=== PATIENT | female | born 1970 | race Caucasian/White ===

== ENCOUNTER → 2019-06-04 14:21 | Outpatient (CLI) | payer OTHER, SELFPAY ==
[2019-06-04 15:58] LABS: Add Manual Diff / Slide Review NO; Basophils Absolute Auto 0 /uL (0-100); Basophils Percent Auto 0.4 % (0-2); Eosinophils Absolute Auto 100 /uL (0-450); Eosinophils Percent Auto 1.4 % (2-4); Hematocrit 44.1 % (36-46); Lymphocytes Absolute Auto 1400 /uL (1100-4500); Lymphocytes Percent Auto 15.8 % (25-40); Mean Corpuscular HGB Conc 34.1 % (30-36); Mean Corpuscular Hemoglobin 33.2 PG (26-34); Mean Corpuscular Volume 97.4 fL (80-100); Monocytes Absolute Auto 700 /uL (0-900); Monocytes Percent Auto 7.6 % (3-14); Neutrophils Absolute Auto 6700 /uL (1500-7000); Neutrophils Percent Auto 74.8 % (50-75); Platelet Count 261 X10^3/uL (150-400); Red Blood Cell Count 4.53 X10^6/uL (4.0-5.2); Red Cell Distribution Width 13.2 % (11.6-14.8)
[2019-06-04 16:08] LABS: BUN Creatinine Ratio 21.4 (6-22); Blood Urea Nitrogen 15 mg/dL (7-17); Calcium 9.5 mg/dL (8.4-10.2); Carbon Dioxide 30 mmol/L (22-32); Chloride 101 mmol/L (98-107); Estimated Glomerular Filt Rate > 60.0 mL/min (>60); Glucose 103 mg/dL (70-100); HEMOLYSIS < 15 (0-50); Potassium 3.9 mmol/L (3.4-5.1); Sodium 140 mmol/L (137-145)
== END ==
PROVIDERS: PCP Family Medicine; Visit Provider Podiatrist
DX: Z01.818 Encounter for other preprocedural examination (principal); Z01.812 Encounter for preprocedural laboratory examination
CPT/HCPCS: 36415; 80048; 85025; 93005

== ENCOUNTER → 2019-12-29 12:06 | Outpatient (CLI) | payer OTHER, SELFPAY ==
[2019-12-29 12:45] LABS: Add Manual Diff / Slide Review NO; Basophils Absolute Auto 0 /uL (0-100); Basophils Percent Auto 0.3 % (0-2); Eosinophils Absolute Auto 0 /uL (0-450); Eosinophils Percent Auto 0.7 % (2-4); Hematocrit 46.1 % (36-46); Hemoglobin 15.8 g/dL (12.0-16.0); Lymphocytes Absolute Auto 1000 /uL (1100-4500); Lymphocytes Percent Auto 13.9 % (25-40); Mean Corpuscular HGB Conc 34.3 % (30-36); Mean Corpuscular Hemoglobin 34.5 PG (26-34); Mean Corpuscular Volume 100.6 fL (80-100); Monocytes Absolute Auto 400 /uL (0-900); Monocytes Percent Auto 6.2 % (3-14); Neutrophils Absolute Auto 5700 /uL (1500-7000); Neutrophils Percent Auto 78.9 % (50-75); Platelet Count 307 X10^3/uL (150-400); Red Blood Cell Count 4.58 X10^6/uL (4.0-5.2); Red Cell Distribution Width 15.1 % (11.6-14.8); White Blood Cell Count 7.2 X10^3/uL (4.5-11.0)
[2019-12-29 13:11] LABS: Alanine Aminotransferase 16 IU/L (<35); Albumin 4.9 g/dL (3.5-5.0); Albumin Globulin Ratio 1.6 (1.0-2.8); Alkaline Phosphatase 85 U/L (38-126); Aspartate Aminotransferase 26 IU/L (14-36); BUN Creatinine Ratio 25.7 (6-22); Bilirubin Total 1.6 mg/dL (0.2-1.3); Blood Urea Nitrogen 18 mg/dL (7-17); Calcium 9.7 mg/dL (8.4-10.2); Carbon Dioxide 27 mmol/L (22-32); Chloride 100 mmol/L (98-107); Estimated Glomerular Filt Rate > 60.0 mL/min (>60); Glucose 99 mg/dL (70-100); HEMOLYSIS < 15 (0-50); Potassium 3.5 mmol/L (3.4-5.1); Sodium 140 mmol/L (137-145); Total Protein 7.9 g/dL (6.3-8.2)
[2019-12-29 13:40] LABS: TSH w/ Reflex to FT4 1.56 uIU/mL (0.47-4.68)
[2019-12-29 17:27] LABS: Gamma Glutamyl Transpeptidase 23 U/L (12-43)
== END ==
PROVIDERS: PCP Family Medicine; Visit Provider Family Medicine
DX: F41.9 Anxiety disorder, unspecified (principal); I10 Essential (primary) hypertension; R01.1 Cardiac murmur, unspecified
CPT/HCPCS: 36415; 80053; 82977; 84443; 85025

== ENCOUNTER 2020-01-04 19:33 | Emergency (ER) | payer OTHER, SELFPAY ==
[2020-01-04 19:47] VITALS: BP 140/86; PULSE 99; RESP 18; TEMP 37; O2SAT 95; BMI 29.5
--- NOTE | 2020-01-04 20:12 | ED.OVERDOSE ---
HPI - Overdose General Chief Complaint: Toxicology Problem Stated Complaint: SI Time Seen by Provider: 01/04/20 19:50 Source: EMS Mode of arrival: EMS Limitations: altered mental status (Alcohol intoxication) History of Present Illness HPI Narrative: The patient arrived last night by EMS. She was out drinking, drinking heavily. She sent a text to friends or family members, declared herself a suicidal. 911 was called. Please found her, paramedics were summoned and brought her to the hospital. She initially refuse care. She was not understanding the conversational, but with her daughter here she was able to comply. She has stayed through the night at this time. She is alert and awake this morning. She is oriented. She is embarrassed, even tearful. She is apparently going through a divorce, she does not generally drink heavily. She binged last night then sent out the note about been suicidal. She has a counselor meeting tomorrow. She was recently seen by her PCM. She has been on citalopram, she was recently started on Seroquel and hydroxyzine. She tells me that when she start taking his medications she almost immediately felt suicidal. I understood she had utilized the Seroquel, she told Dr. Willson she had not yet taken the Seroquel. She has never done anything to harm herself. She had no specific plan on hurting herself. She has no chronic history of depression, this was deemed to situational problem giving the divorce and social situation. Related Data Previous Rx's Medication Instructions Recorded chlorthalidone 25 mg tablet 25 mg PO QDAY #90 tab 03/22/19 citalopram 20 mg tablet 20 mg PO QDAY #90 tab 03/22/19 metoprolol succinate 25 mg 25 mg PO QDAY #90 tab 03/22/19 tablet,extended release 24 hr hydroxyzine HCl 25 mg tablet See Rx Instructions PO QID PRN #30 01/03/20 tab quetiapine 25 mg tablet See Rx Instructions PO BEDTIME #10 01/03/20 tab Allergies Allergy/AdvReac Type Severity Reaction Status Date / Time No Known Drug Allergies Allergy Unverified 01/04/20 19:50 Review of Systems Review of Systems ROS Unobtainable: Unobtainable due to medical condition Constitutional Constitutional: Denies chills, Denies fever(s), Denies lethargy and Denies weakness Neurologic Neurologic: Denies weakness Patient History Medical History (Updated 01/05/20 @ 08:24 by Kt Martin MD) Depression (Acute) Surgical History Status post hysterectomy with oophorectomy Family History Grandmother Myocardial infarct Social History Smoking Status: Never smoker Smoking Status: Never smoker Alcohol type: wine Substance Use Type: does not use Exam Initial Vital Signs Initial Vital Signs: Vital Signs Temperature 98.6 F 01/04/20 19:47 Pulse Rate 99 H 01/04/20 19:47 Respiratory Rate 18 01/04/20 19:47 Blood Pressure 140/86 01/04/20 19:47 Pulse Oximetry 95 01/04/20 19:47 Const General: in distress, anxious and intoxicated appearing Nutritional Appearance: well nourished Limitations: behavioral limitations HENMT Mouth: oral mucosae normal Eyes Pupils: PERRL EOM: nystagmus Resp Effort & Inspection: normal respiratory effort and able to speak in complete sentences Auscultation: clear to auscultation bilaterally, no rales, no rhonchi and no wheezes Cardio Rate: regular rate Rhythm: regular rhythm Heart Sounds: S1 normal, S2 normal, no click, no gallops, no murmurs and no rubs Pulses: normal peripheral pulses GI Inspection: non-distended Palpation: soft, no hepatosplenomegaly and No tender Auscultation: normal bowel sounds Back/Spine/Pelvis Back: normal to inspection Skin General: no rashes or lesions noted Neuro General: alert, awake and confused Cranial Nerves: nystagmus Extrem General: full ROM, no clubbing, cyanosis or edema and no pedal edema Psych Appearance: disheveled Speech and Movement: delayed speech Other: Intoxicated. Seems to have difficulty understanding questions. She is crying. She is upset. Course Course Course Narrative: The patient comes in with an affadivit from the local police department, confirming her statement about self-harm. The patient was convinced to stay through the night without additional action on our part. This morning she is oriented, she is tearful she denies suicidal thoughts or plans. She intends to see a counselor tomorrow. I discussed the situation with Dr. Willson, her PCM. I discussed the patient's suicidal ideation after starting Seroquel. Dr. Willson stopped by the ER to see the patient. The patient will be discharged and will follow up with Dr. Willson as well as following up with the psychologist. Orders Ordered: ED Orders 01/05/20 04:00 Ethanol (ETOH) Stat 01/05/20 07:45 Ethanol (ETOH) Stat Vital Signs Vital signs: Vital Signs - 8 hr 01/05/20 02:45 01/05/20 03:46 01/05/20 06:33 Pulse Rate 77 88 88 Blood Pressure [Right Arm] 151/97 H Pulse Oximetry 94 95 95 MDM - Overdose Lab Data Result diagrams: 01/04/20 20:25 01/04/20 20:25 Labs: Lab Results 01/04/20 01/04/20 01/04/20 Range/Units 20:25 20:25 20:25 WBC 6.9 (4.5-11.0) X10^3/uL RBC 4.65 (4.0-5.2) X10^6/uL Hgb 16.0 (12.0-16.0) g/dL Hct 46.7 H (36-46) % MCV 100.3 H (80-100) fL MCH 34.4 H (26-34) PG MCHC 34.3 (30-36) % RDW 14.9 H (11.6-14.8) % Plt Count 308 (150-400) X10^3/uL Neut % (Auto) 68.1 (50-75) % Lymph % (Auto) 23.3 L (25-40) % Stoddard % (Auto) 6.7 (3-14) % Eos % (Auto) 1.3 L (2-4) % Baso % (Auto) 0.6 (0-2) % Neut # (Auto) 4700 (1307-7177) /uL Lymph # (Auto) 1600 (5117-9942) /uL Stoddard # (Auto) 500 (0-900) /uL Eos # (Auto) 100 (0-450) /uL Baso # (Auto) 0 (0-100) /uL Sodium 146 H (137-145) mmol/L Potassium 3.6 (3.4-5.1) mmol/L Chloride 105 (98-107) mmol/L Carbon Dioxide 25 (22-32) mmol/L BUN 7 (7-17) mg/dL Creatinine 0.60 (0.52-1.04) mg/dL Estimated GFR > 60.0 (>60) mL/min BUN/Creatinine Ratio 11.7 (6-22) Glucose 103 H (70-100) mg/dL Calcium 8.7 (8.4-10.2) mg/dL Total Bilirubin 0.7 (0.2-1.3) mg/dL AST 20 (14-36) IU/L ALT 12 (<35) IU/L Alkaline Phosphatase 72 (38-126) U/L Total Protein 7.8 (6.3-8.2) g/dL Albumin 4.7 (3.5-5.0) g/dL Globulin 3.1 (1.7-4.1) g/dL Albumin/Globulin Ratio 1.5 (1.0-2.8) Lipase 75 (23-300) U/L TSH 1.91 (0.47-4.68) uIU/mL Urine Color Urine Appearance Urine pH (4.5-8.0) Ur Specific Mendon (1.000-1.035) Urine Protein (Negative) Urine Glucose (UA) (Negative) g/dL Urine Ketones (NEGATIVE) Urine Occult Blood (Negative) Urine Nitrate (Negative) Urine Bilirubin (NEGATIVE) Urine Urobilinogen (0.2) E.U./dL Ur Leukocyte Esterase (NEGATIVE) Urine RBC (0-5/HPF) Urine WBC (0-5/HPF) Ur Squamous Epith Cells (0-5/HPF) Urine Bacteria (None) Ur Culture Indicated? Salicylates < 1.0 (<20) mg/dL U Opiates 300ng/mL cut (Negative) Ur Oxycodone Screen (Negative) Urine Methadone Screen (Negative) Acetaminophen < 10 L (10-30) ug/mL Ur Barbiturates Screen (Negative) U Tricyclic Antidepress (Negative) Ur Phencyclidine Scrn (Negative) Ur Amphetamines Screen (Negative) U Methamphetamines Scrn (Negative) Ur MDMA Scrn (Ecstasy) (Negative) U Benzodiazepines Scrn (Negative) Urine Cocaine Screen (Negative) U Marijuana (THC) Screen (Negative) Ethyl Alcohol 255 H ( - 10) mg/dL 01/04/20 01/04/20 01/05/20 Range/Units 21:35 21:35 04:00 WBC (4.5-11.0) X10^3/uL RBC (4.0-5.2) X10^6/uL Hgb (12.0-16.0) g/dL Hct (36-46) % MCV (80-100) fL MCH (26-34) PG MCHC (30-36) % RDW (11.6-14.8) % Plt Count (150-400) X10^3/uL Neut % (Auto) (50-75) % Lymph % (Auto) (25-40) % Stoddard % (Auto) (3-14) % Eos % (Auto) (2-4) % Baso % (Auto) (0-2) % Neut # (Auto) (2260-1939) /uL Lymph # (Auto) (1507-1552) /uL Stoddard # (Auto) (0-900) /uL Eos # (Auto) (0-450) /uL Baso # (Auto) (0-100) /uL Sodium (137-145) mmol/L Potassium (3.4-5.1) mmol/L Chloride (98-107) mmol/L Carbon Dioxide (22-32) mmol/L BUN (7-17) mg/dL Creatinine (0.52-1.04) mg/dL Estimated GFR (>60) mL/min BUN/Creatinine Ratio (6-22) Glucose (70-100) mg/dL Calcium (8.4-10.2) mg/dL Total Bilirubin (0.2-1.3) mg/dL AST (14-36) IU/L ALT (<35) IU/L Alkaline Phosphatase (38-126) U/L Total Protein (6.3-8.2) g/dL Albumin (3.5-5.0) g/dL Globulin (1.7-4.1) g/dL Albumin/Globulin Ratio (1.0-2.8) Lipase (23-300) U/L TSH (0.47-4.68) uIU/mL Urine Color Yellow Urine Appearance Sl cloudy Urine pH 5.0 (4.5-8.0) Ur Specific Mendon 1.025 (1.000-1.035) Urine Protein Negative (Negative) Urine Glucose (UA) Negative (Negative) g/dL Urine Ketones Negative (NEGATIVE) Urine Occult Blood Negative (Negative) Urine Nitrate Negative (Negative) Urine Bilirubin Negative (NEGATIVE) Urine Urobilinogen 0.2 (0.2) E.U./dL Ur Leukocyte Esterase Negative (NEGATIVE) Urine RBC 0-1/hpf (0-5/HPF) Urine WBC 0-1/hpf (0-5/HPF) Ur Squamous Epith Cells >30 /hpf H (0-5/HPF) Urine Bacteria Few (2-10) H (None) Ur Culture Indicated? Cult not indicated Salicylates (<20) mg/dL U Opiates 300ng/mL cut Negative (Negative) Ur Oxycodone Screen Negative (Negative) Urine Methadone Screen Negative (Negative) Acetaminophen (10-30) ug/mL Ur Barbiturates Screen Negative (Negative) U Tricyclic Antidepress Negative (Negative) Ur Phencyclidine Scrn Negative (Negative) Ur Amphetamines Screen Negative (Negative) U Methamphetamines Scrn Negative (Negative) Ur MDMA Scrn (Ecstasy) Negative (Negative) U Benzodiazepines Scrn Negative (Negative) Urine Cocaine Screen Negative (Negative) U Marijuana (THC) Screen Negative (Negative) Ethyl Alcohol 135 H ( - 10) mg/dL 01/05/20 Range/Units 07:45 WBC (4.5-11.0) X10^3/uL RBC (4.0-5.2) X10^6/uL Hgb (12.0-16.0) g/dL Hct (36-46) % MCV (80-100) fL MCH (26-34) PG MCHC (30-36) % RDW (11.6-14.8) % Plt Count (150-400) X10^3/uL Neut % (Auto) (50-75) % Lymph % (Auto) (25-40) % Stoddard % (Auto) (3-14) % Eos % (Auto) (2-4) % Baso % (Auto) (0-2) % Neut # (Auto) (1717-3053) /uL Lymph # (Auto) (3988-9957) /uL Stoddard # (Auto) (0-900) /uL Eos # (Auto) (0-450) /uL Baso # (Auto) (0-100) /uL Sodium (137-145) mmol/L Potassium (3.4-5.1) mmol/L Chloride (98-107) mmol/L Carbon Dioxide (22-32) mmol/L BUN (7-17) mg/dL Creatinine (0.52-1.04) mg/dL Estimated GFR (>60) mL/min BUN/Creatinine Ratio (6-22) Glucose (70-100) mg/dL Calcium (8.4-10.2) mg/dL Total Bilirubin (0.2-1.3) mg/dL AST (14-36) IU/L ALT (<35) IU/L Alkaline Phosphatase (38-126) U/L Total Protein (6.3-8.2) g/dL Albumin (3.5-5.0) g/dL Globulin (1.7-4.1) g/dL Albumin/Globulin Ratio (1.0-2.8) Lipase (23-300) U/L TSH (0.47-4.68) uIU/mL Urine Color Urine Appearance Urine pH (4.5-8.0) Ur Specific Mend[place] (1.000-1.035) Urine Protein (Negative) Urine Glucose (UA) (Negative) g/dL Urine Ketones (NEGATIVE) Urine Occult Blood (Negative) Urine Nitrate (Negative) Urine Bilirubin (NEGATIVE) Urine Urobilinogen (0.2) E.U./dL Ur Leukocyte Esterase (NEGATIVE) Urine RBC (0-5/HPF) Urine WBC (0-5/HPF) Ur Squamous Epith Cells (0-5/HPF) Urine Bacteria (None) Ur Culture Indicated? Salicylates (<20) mg/dL U Opiates 300ng/mL cut (Negative) Ur Oxycodone Screen (Negative) Urine Methadone Screen (Negative) Acetaminophen (10-30) ug/mL Ur Barbiturates Screen (Negative) U Tricyclic Antidepress (Negative) Ur Phencyclidine Scrn (Negative) Ur Amphetamines Screen (Negative) U Methamphetamines Scrn (Negative) Ur MDMA Scrn (Ecstasy) (Negative) U Benzodiazepines Scrn (Negative) Urine Cocaine Screen (Negative) U Marijuana (THC) Screen (Negative) Ethyl Alcohol 52 H ( - 10) mg/dL Discharge Plan Departure Patient Disposition: Home Clinical Impression: Suicide ideation Alcohol intoxication Qualifiers: Complication of substance-induced condition: uncomplicated Qualified Code(s): F10.920 - Alcohol use, unspecified with intoxication, uncomplicated Instructions: Depression Activity Restrictions/Additional Instructions: Follow-up with your counselor as scheduled. Avoid taking Seroquel. Follow-up with your clinic doctor regarding your antidepressant medications. Avoid alcohol. Return to the ER as needed. Prescriptions: No Action hydroxyzine HCl 25 mg tablet See Rx Instructions PO QID PRN (Reason: anxiety) Qty: 30 RF: 0 quetiapine [Seroquel] 25 mg tablet See Rx Instructions PO BEDTIME Qty: 10 RF: 0 chlorthalidone 25 mg tablet 25 mg PO QDAY Qty: 90 RF: 1 citalopram 20 mg tablet 20 mg PO QDAY Qty: 90 RF: 1 metoprolol succinate [Toprol XL] 25 mg tablet extended release 24 hr 25 mg PO QDAY Qty: 90 RF: 1 Referrals: Roxanne Willson DO [Primary Care Provider] -
--- NOTE | 2020-01-04 20:23 | PC.NURSE ---
Patient declined initial blood draw, after explaining the process for medical clearance and patients safety for a second time by this RN and by the Provider patient agrees to have blood drawn.
[2020-01-04 20:31] LABS: Add Manual Diff / Slide Review NO; Basophils Absolute Auto 0 /uL (0-100); Basophils Percent Auto 0.6 % (0-2); Eosinophils Absolute Auto 100 /uL (0-450); Eosinophils Percent Auto 1.3 % (2-4); Hematocrit 46.7 % (36-46); Lymphocytes Absolute Auto 1600 /uL (1100-4500); Lymphocytes Percent Auto 23.3 % (25-40); Mean Corpuscular HGB Conc 34.3 % (30-36); Mean Corpuscular Hemoglobin 34.4 PG (26-34); Mean Corpuscular Volume 100.3 fL (80-100); Monocytes Absolute Auto 500 /uL (0-900); Monocytes Percent Auto 6.7 % (3-14); Neutrophils Absolute Auto 4700 /uL (1500-7000); Neutrophils Percent Auto 68.1 % (50-75); Platelet Count 308 X10^3/uL (150-400); Red Blood Cell Count 4.65 X10^6/uL (4.0-5.2); Red Cell Distribution Width 14.9 % (11.6-14.8); White Blood Cell Count 6.9 X10^3/uL (4.5-11.0)
[2020-01-04 20:46] LABS: Acetaminophen < 10 ug/mL (10-30); Alanine Aminotransferase 12 IU/L (<35); Albumin 4.7 g/dL (3.5-5.0); Albumin Globulin Ratio 1.5 (1.0-2.8); Alkaline Phosphatase 72 U/L (38-126); Aspartate Aminotransferase 20 IU/L (14-36); BUN Creatinine Ratio 11.7 (6-22); Bilirubin Total 0.7 mg/dL (0.2-1.3); Blood Urea Nitrogen 7 mg/dL (7-17); Calcium 8.7 mg/dL (8.4-10.2); Carbon Dioxide 25 mmol/L (22-32); Chloride 105 mmol/L (98-107); Estimated Glomerular Filt Rate > 60.0 mL/min (>60); Ethanol (ETOH) 255 mg/dL; Globulin 3.1 g/dL (1.7-4.1); Glucose 103 mg/dL (70-100); HEMOLYSIS < 15 (0-50); Lipase 75 U/L (23-300); Potassium 3.6 mmol/L (3.4-5.1); Salicylate < 1.0 mg/dL (<20); Sodium 146 mmol/L (137-145); Total Protein 7.8 g/dL (6.3-8.2)
--- NOTE | 2020-01-04 20:58 | PC.NURSE ---
Family at bedside
--- NOTE | 2020-01-04 20:59 | PC.NURSE ---
Family at bedside
--- NOTE | 2020-01-04 21:00 | PC.NURSE ---
Family at bedside
--- NOTE | 2020-01-04 21:12 | PC.NURSE ---
patient assisted to restroom and set up with a hat. Patient family overheard instructions to urinate in the hat however the patient removed the hat from the toilet and placed it in the garbage can. When asked about the urine sample the patient claimed she did not know what the hat was for. The pateint family engaged in conversation with her about how her instructions from the nurse were clear. Patient is argumentative. It was stated by this nurse that we will need her urine to be able to clear her medically. Patient continued to argue, this nurse stated the needs and left the room.
[2020-01-04 21:35] LABS: Thyroid Stimulating Hormone 1.91 uIU/mL (0.47-4.68)
[2020-01-04 21:42] LABS: Appearance Urine UA SL CLOUDY; Bilirubin Urine UA NEGATIVE (NEGATIVE); Color Urine UA YELLOW; Glucose Urine UA NEGATIVE (Negative); Ketones Urine UA NEGATIVE (NEGATIVE); Leukocyte Esterase Urine UA NEGATIVE (NEGATIVE); Nitrite Urine UA NEGATIVE (Negative); Occult Blood Urine UA NEGATIVE (Negative); Protein Urine UA NEGATIVE (Negative); Specific Gravity Urine UA 1.025 (1.000-1.035); Urobilinogen Urine UA 0.2 E.U./dL (0.2)
--- NOTE | 2020-01-04 21:51 | PC.NURSE ---
patient pacing in room how much longer till i get to leave, I want to go home. You can't keep me here Reminded patient why she was in the Emergency department, explained medical clearance and evaluation by mental health professional. Patient redirected to the bed, provided warm blanket. Dimmed the lights.
[2020-01-04 21:52] LABS: Bacteria Urine Few (2-10); Culture Indicated Urine Cult Not Indicated; RBC Urine 0-1/HPF (0-5/HPF); Squamous Epithelial Cell Urine >30 /HPF (0-5/HPF); UR Morphine/Opiate cutoff 300 Negative (Negative); Ur Creatinine Normal (Normal); Ur Specific Gravity Normal (Normal); Urine Amphetamines Negative (Negative); Urine Barbiturates Negative (Negative); Urine Benzodiazepines Negative (Negative); Urine Cocaine Negative (Negative); Urine MDMA Negative (Negative); Urine Methadone Negative (Negative); Urine Methamphetamines Negative (Negative); Urine Oxycodone Negative (Negative); Urine Phencyclidine Negative (Negative); Urine Tetrahydrocannabinol Negative (Negative); Urine Tricyclic Antidepressant Negative (Negative); Urine pH Normal (Normal); WBC Urine 0-1/HPF (0-5/HPF)
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
--- NOTE | 2020-01-04 22:07 | PC.NURSE ---
Pt family in room
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
--- NOTE | 2020-01-04 22:12 | PC.NURSE ---
no staff available for 1:1 bedside sitter. Pt in room 6 in front of nurse station with curtain open.
--- NOTE | 2020-01-04 22:23 | PC.NURSE ---
pateint continues denies taking any pills.
--- NOTE | 2020-01-04 23:41 | PC.NURSE ---
patient denies all thoughts of suicide. Patient refuses to answer any questions related to her actions today. She states she is fine and wants to go home. Provider aware.
[2020-01-05 02:45] VITALS: PULSE 77; O2SAT 94
[2020-01-05 03:46] VITALS: PULSE 88; O2SAT 95
[2020-01-05 04:17] LABS: Ethanol (ETOH) 135 mg/dL
[2020-01-05 06:33] VITALS: BP 151/97; PULSE 88; O2SAT 95
[2020-01-05 08:01] LABS: Ethanol (ETOH) 52 mg/dL
[2020-01-05 08:39] VITALS: BP 146/85; PULSE 94; RESP 19; O2SAT 98
--- NOTE | 2020-01-05 08:42 | PC.NURSE ---
pt given meal tray, stated she was not hungry
== END 2020-01-05 08:50 | disposition home or self-care (01) ==
PROVIDERS: Emergency Medicine; Emergency Provider Emergency Medicine; PCP Family Medicine
DX: R45.851 Suicidal ideations (principal); F10.920 Alcohol use, unspecified with intoxication, uncomplicated; F32.9 Major depressive disorder, single episode, unspecified
CPT/HCPCS: 36415; 80053; 80305; 80320; 80329; 81001; 83690; 84443; 85025; 93005; 99284; G0480

== ENCOUNTER → 2020-05-26 10:07 | Outpatient (CLI) | payer OTHER, SELFPAY ==
--- NOTE | 2020-05-26 | DI.MG.S_ITS ---
BILATERAL DIGITAL SCREENING MAMMOGRAM 3D/2D WITH CAD: 05/26/2020 CLINICAL: Routine screening. Comparison is made to exams dated: 02/03/2018 mammogram, 01/21/2018 mammogram, 05/24/2013 mammogram, and 05/24/2013 mammogram - [facility]. The tissue of both breasts is heterogeneously dense. This may lower the sensitivity of mammography. Current study was also evaluated with a Computer Aided Detection (CAD) system. There is a new round mass in the left breast at 2 o'clock posterior depth. There also is a cyst in the left breast central to the nipple middle depth. This is increased in size from the 2018 mammogram and ultrasound. No other significant masses, calcifications, or other findings are seen in either breast. IMPRESSION: INCOMPLETE: NEEDS ADDITIONAL IMAGING EVALUATION The new round mass in the left breast at 2 o'clock posterior depth likely represents a cyst and is indeterminate. Additional views with possible ultrasound are recommended. The cyst in the left breast central to the nipple middle depth is indeterminate. Additional views with possible ultrasound are recommended. This exam was interpreted at Station ID: [id number]. NOTE: For mammograms, a report in lay terms will be sent to the patient. Approximately 15% of breast malignancies will not be visualized mammographically. In the management of a palpable breast mass, a negative mammogram must not discourage biopsy of a clinically suspicious lesion. Electronically Signed By: Gabbie toro/:05/26/2020 11:43:50 letter sent: Additional Imaging Needed ACR BI-RADS Category 0: Incomplete [id number]
== END ==
PROVIDERS: PCP Family Medicine; Referring Provider Family Medicine; Visit Provider Family Medicine
DX: Z12.31 Encounter for screening mammogram for malignant neoplasm of breast (principal)
CPT/HCPCS: 77063; 77067

== ENCOUNTER → 2020-06-22 08:54 | Outpatient (CLI) | payer OTHER, SELFPAY ==
--- NOTE | 2020-06-22 | DI.US.S_ITS ---
ULTRASOUND OF LEFT BREAST: 06/22/2020 CLINICAL: Patient returns today to evaluate focal asymmetries in the left breast. 6 month follow-up of cysts. Comparison is made to exams dated: 06/22/2020 mammogram, 05/26/2020 mammogram, 01/21/2018 mammogram, 05/24/2013 mammogram - [facility], and 09/28/2019 ultrasound. Color flow and real-time ultrasound of the left breast were performed. Jimenez scale images of the real-time examination were reviewed. There is a 0.9 cm x 0.9 cm x 0.5 cm wider than tall oval cyst with a septated internal briggs in the left breast at 12 o'clock posterior depth 4 cm from the nipple. This oval cyst is hypoechoic. Color flow imaging demonstrates that there is no vascularity present. There also are multiple benign 1.2 cm to 1.8cm various sized oval simple cysts in the left breast inferior lateral quadrant anterior to posterior depths. These oval simple cysts are anechoic with posterior acoustic enhancement. The largest ones correlate with mammography findings. Color flow imaging demonstrates that there is no vascularity present. IMPRESSION: PROBABLY BENIGN The 0.9 cm x 0.9 cm x 0.5 cm wider than tall oval cyst in the left breast at 12 o'clock posterior depth resembles a complicated cyst and is probably benign. The multiple various sized oval simple cysts in the left breast inferior lateral quadrant anterior to posterior depths are consistent with a simple cyst and are benign. A follow-up left mammogram and an ultrasound in 6 months is recommended to demonstrate stability. Findings and recommendations were conveyed to the patient during today's visit. This exam was interpreted at Station ID: [id number]. Electronically Signed By: Lake Denis M.D. aty/:06/22/2020 12:12:51 letter sent: Followup Recommended Ultrasound BI-RADS: 3 Probably benign
--- NOTE | 2020-06-22 | DI.MG.S_ITS ---
UNILATERAL LEFT DIGITAL DIAGNOSTIC MAMMOGRAM 3D/2D WITH ADDITIONAL VIEWS: 06/22/2020 CLINICAL: Additional evaluation requested from prior study. Comparison is made to exams dated: 05/26/2020 mammogram, 01/21/2018 mammogram, 05/24/2013 mammogram, and 05/24/2013 mammogram - [facility]. The tissue of left breast is heterogeneously dense. This may lower the sensitivity of mammography. Redemonstration of recently described new 1.4 cm round mass in the left breast at 2 o'clock posterior depth. There also is a 1.5 cm cyst in the left breast central to the nipple middle depth. This is increased in size. No other significant masses or calcifications are seen in the breast. IMPRESSION: INCOMPLETE: NEEDS ADDITIONAL IMAGING EVALUATION The 1.4 cm round mass in the left breast at 2 o'clock posterior depth likely represents a cyst and is indeterminate. An ultrasound is recommended for further evaluation and is scheduled to immediately follow this study. The 1.5 cm cyst in the left breast central to the nipple middle depth is indeterminate. An ultrasound is recommended for further evaluation and is scheduled to immediately follow this study. This exam was interpreted at Station ID: [id number]. NOTE: For mammograms, a report in lay terms will be sent to the patient. Approximately 15% of breast malignancies will not be visualized mammographically. In the management of a palpable breast mass, a negative mammogram must not discourage biopsy of a clinically suspicious lesion. Electronically Signed By: Lake Denis M.D. aty/:06/22/2020 11:57:03 ACR BI-RADS Category 0: Incomplete [id number]
== END ==
PROVIDERS: PCP Family Medicine; Referring Provider Family Medicine; Visit Provider Family Medicine
DX: R92.8 Other abnormal and inconclusive findings on diagnostic imaging of breast (principal); N60.02 Solitary cyst of left breast
CPT/HCPCS: 76642; 77065; G0279

== ENCOUNTER → 2021-02-06 08:45 | Outpatient (CLI) | payer OTHER, SELFPAY ==
--- NOTE | 2021-02-06 08:46 | DI.MG.S_ITS ---
UNILATERAL LEFT DIGITAL DIAGNOSTIC MAMMOGRAM 3D/2D: 02/06/2021 CLINICAL: Short term follow up for the left breast. Comparison is made to exams dated: 06/22/2020 mammogram, 05/26/2020 mammogram, and 01/21/2018 mammogram - [facility]. The tissue of left breast is heterogeneously dense. This may lower the sensitivity of mammography. There has been no significant interval change in appearance of small masses in the left breast which were shown on prior ultrasound examinations to be cysts. IMPRESSION: INCOMPLETE: NEEDS ADDITIONAL IMAGING EVALUATION Unchanged cysts, which are to be further evaluated with ultrasound scheduled to immediately follow this study. This exam was interpreted at Station ID: [id number]. NOTE: For mammograms, a report in lay terms will be sent to the patient. Approximately 15% of breast malignancies will not be visualized mammographically. In the management of a palpable breast mass, a negative mammogram must not discourage biopsy of a clinically suspicious lesion. Electronically Signed By: Umair Whitley M.D. jr/:02/06/2021 09:49:27 ACR BI-RADS Category 0: Incomplete [id number]
--- NOTE | 2021-02-06 08:46 | DI.US.S_ITS ---
LIMITED ULTRASOUND OF LEFT BREAST: 02/06/2021 CLINICAL: Patient returns today to evaluate a focal asymmetry in the left breast. No prior exams were available for comparison. Color flow and Doppler ultrasound of the left breast 12 o'clock region were performed. Jimenez scale images of the real-time examination were reviewed. There is a benign cyst with a septated internal wall in the left breast at 12 o'clock posterior depth. This abnormality is not significantly changed. Color flow imaging demonstrates that there is no vascularity present. IMPRESSION: BENIGN There is no sonographic evidence of malignancy. The cyst in the left breast resembles a complicated cyst and is benign. An ultrasound is recommended for further evaluation and is scheduled to immediately follow this study. Return to annual mammogram screening schedule is recommended. This exam was interpreted at Station ID: [id number]. Electronically Signed By: Umair Whitley M.D., jr/margaux:02/06/2021 09:47:51 letter sent: Normal Exam Ultrasound BI-RADS: 2 Benign
== END ==
PROVIDERS: PCP Family Medicine; Referring Provider Family Medicine; Visit Provider Family Medicine
DX: R92.8 Other abnormal and inconclusive findings on diagnostic imaging of breast (principal); N60.02 Solitary cyst of left breast
CPT/HCPCS: 76642; 77065; G0279

== ENCOUNTER → 2021-08-11 09:33 | Outpatient (CLI) | payer OTHER, SELFPAY ==
[2021-08-11 11:37] LABS: Add Manual Diff / Slide Review NO; Basophils Absolute Auto 0 /uL (0-100); Basophils Percent Auto 0.3 % (0-2); Eosinophils Absolute Auto 100 /uL (0-450); Eosinophils Percent Auto 2.3 % (2-4); Hematocrit 43.6 % (36-46); Hemoglobin 14.5 g/dL (12.0-16.0); Lymphocytes Absolute Auto 1200 /uL (1100-4500); Lymphocytes Percent Auto 19.6 % (25-40); Mean Corpuscular HGB Conc 33.3 % (30-36); Mean Corpuscular Hemoglobin 31.9 PG (26-34); Mean Corpuscular Volume 95.7 fL (80-100); Monocytes Absolute Auto 400 /uL (0-900); Monocytes Percent Auto 6.3 % (3-14); Neutrophils Absolute Auto 4200 /uL (1500-7000); Neutrophils Percent Auto 71.5 % (50-75); Platelet Count 252 X10^3/uL (150-400); Red Blood Cell Count 4.56 X10^6/uL (4.0-5.2); Red Cell Distribution Width 13.7 % (11.6-14.8); White Blood Cell Count 5.9 X10^3/uL (4.5-11.0)
[2021-08-11 12:00] LABS: Alanine Aminotransferase 16 IU/L (<35); Albumin Globulin Ratio 1.5 (1.0-2.8); Alkaline Phosphatase 67 U/L (38-126); Aspartate Aminotransferase 23 IU/L (14-36); BUN Creatinine Ratio 20.3 (6-22); Bilirubin Total 0.9 mg/dL (0.2-1.3); Blood Urea Nitrogen 14 mg/dL (7-17); Carbon Dioxide 29 mmol/L (22-32); Chloride 103 mmol/L (98-107); Cholesterol 238 mg/dL (140-199); Estimated Glomerular Filt Rate > 60.0 mL/min (>60); Globulin 2.7 g/dL (1.7-4.1); Glucose 91 mg/dL (70-100); HDL Cholesterol 60 mg/dL (40-60); HEMOLYSIS < 15 (0-50); LDL Cholesterol Calculated 155 mg/dL (<100); Potassium 3.7 mmol/L (3.4-5.1); Sodium 138 mmol/L (137-145); Total Protein 6.7 g/dL (6.3-8.2); Triglycerides 116 mg/dL (35-150)
== END ==
PROVIDERS: PCP Family Medicine; Referring Provider Family Medicine; Visit Provider Family Medicine
DX: I10 Essential (primary) hypertension (principal); E53.8 Deficiency of other specified B group vitamins
CPT/HCPCS: 36415; 80053; 80061; 85025

== ENCOUNTER → 2021-11-08 12:24 | Outpatient (CLI) | payer OTHER, SELFPAY | PROVIDERS: Family Provider Family Medicine; PCP Family Medicine; Referring Provider Family Medicine; Visit Provider Family Medicine | DX: M79.601 Pain in right arm (principal); R20.0 Anesthesia of skin | CPT/HCPCS: 95886; 95909 ==

== ENCOUNTER → 2022-03-04 08:31 | Outpatient (CLI) | payer OTHER, SELFPAY ==
[2022-03-04 09:45] LABS: COVID19 -Nasal RAPID Negative (Negative)
== END ==
PROVIDERS: Family Provider Family Medicine; PCP Family Medicine; Visit Provider Physical Medicine & Rehabilitation
DX: Z20.822 Contact with and (suspected) exposure to COVID-19 (principal)
CPT/HCPCS: 87635; C9803

== ENCOUNTER 2022-03-05 08:43 | Outpatient (CLI) | payer OTHER, SELFPAY ==
[2022-03-05] VITALS (11 sets, daily range): BP systolic 101–127; BP diastolic 65–85; PULSE 60–72; RESP 15–20; TEMP 36.2; O2SAT 96–99
--- NOTE | 2022-03-05 08:48 | DI.RAD.S_ITS ---
PROCEDURE: PAIN C/T INTERLAMINAR INJECT INDICATIONS: SPINAL STENOSIS COMPARISON: None. FINDINGS: Fluoroscopic spot filming was performed to verify placement of spinal needles at the C6-7 level(s), as labeled on the films. Appropriate location(s) of the needle tip(s) was confirmed by injection of iodinated contrast. IMPRESSION: Fluoroscopic images demonstrating needle placement for interlaminar injection. Dictated by: Norm Gaston M.D. on 03/05/2022 at 10:35 Approved by: Norm Gaston M.D. on 03/05/2022 at 10:36
[2022-03-05] MEDS: MIDAZOLAM 2 MG/2 ML VIAL IV (09:20)
[2022-03-05] MEDS: IOPAMIDOL 15 ML VIAL 3 ML INJ (09:30)
[2022-03-05] MEDS: DEXAMETHASONE 10 MG/ML VIAL 30 MG INJ (09:30)
[2022-03-05] MEDS: BUPIVACAINE 0.25% (PF) VIAL 2 ML INJ (09:30)
[2022-03-05] MEDS: fentaNYL 100 MCG/2 ML INJ (09:35)
--- NOTE | 2022-03-05 09:50 | P.PCN_ITS ---
Date/Time/Diagnoses Date of procedure: 03/05/22 Time of procedure: 09:50 Pre-procedure diagnosis: 1. CERVICAL STENOSIS, 2. CERVICAL HNP WITH UPPER EXTREMITY RADICULAR FEATURES Post-procedure diagnosis: same Procedure Notes Procedure: 1. FLUORSCOPICALLY GUIDED CONTRAST CONTROLLED INTERLAMINAR EPIDURAL STEROID INJECTION - C6/7 TL OPAL Indications: Samantha is referred by Dr. Willson for treatment of Cervical HNP with Upper Extremity Paresthesias. Physician: Kt Oglesby Total Fluoroscopy time (seconds): 44 Total sedation minutes: 24 Complications: none Procedure in detail & Post-procedure care: FINDINGS Cervical Stenosis due to disc deterioration and nerve root irritation and nerve root irritation DESCRIPTION OF PROCEDURE Fluoroscopically guided, contrast-controlled C6/7 translaminar epidural steroid injection with conscious sedation. Following review of allergy and review of potential side effects and complications, including, but not necessarily limited to, infection, allergic reaction, local tissue breakdown, temporary as well as permanent nerve injury, stroke, paralysis, and possible , the patient indicated that patient understood and agreed to proceed. An informed consent document was signed by the patient, witnessed by a nurse, and placed in the patient's chart. Additionally, other treatment options including modalities, medications, and physical therapy were reviewed with the patient. After review of previous anaesthesic history and IV conscious sedation the patient was deemed safe to proceed with today?s procedure with IV conscious phil tion as ASA class II designation. Safety time-out was performed to confirm patient ID, procedure to be performed and site of procedure. IV sedation was accomplished with a combination of 2mg of Versed and 50mcg of Fentanyl administered by the RN after DO order, titrated to patient comfort during the course of the procedure while the patient remained responsive to all verbal commands. In the prone position, following sterile prep and drape of the cervical region, the C6/7 translaminar space was identified fluoroscopically. The skin was anesthetized via a 25-gauge 1.5-inch needle with 1% lidocaine solution. At this point, a 25-gauge, 2.5-inch short bevel spinal needle was atraumatically introduced and advanced under fluoroscopic guidance into epidural space at the C6/7 translaminar space. Depth was confirmed on lateral view. Radiological data, including multiple fluoroscopic views of the cervical spine, reveal a spinal needle at the C6/7 translaminar space. Lateral views then show placement of the needle in the epidural space. Subsequent views show contrast material flowing superiorly and inferiorly in the epidural space. DSA fluoroscopy with live contrast injection, once again, confirmed no vascular or intrathecal uptake. At this point, using loss of resistance technique with saline and air, the epidural space was entered. Following negative aspiration, injection of approximately 1.5 cc of Isovue-200 with live fluoroscopy in the AP view confirmed epidural flow in the epidural space without vascular or intrathecal uptake observed. Subsequently, a test dose of 1 cc of 1% lidocaine solution was injected and patient was observed for two minutes without signs or symptoms of complications, including abdominal pain, shortness of breath, bilateral upper or lower extremity weakness, nausea and vomiting, prior to steroid injection. At this point, 3cc or 30mg of dexamethasone was then injected without incident. The patient tolerated the procedure well without signs or symptoms of complications prior to being transferred to the recovery area for further monitoring, The patient was then transferred to the recovery area where they were observed for an appropriate period of time after the injection. The patient reported a VAS score of 6 prior to the procedure and a post-procedure VAS of 0. POST OP INSTRUCTIONS The patient was provided a Pain Log to continue to record their response to the target-specific procedure prior to follow-up visit with the referring provider. Additionally, specific post-injection care instructions and a contact number to our office were provided if concerns arise regarding possible complications associated with the procedure are suspected.
== END 2022-03-05 10:05 | disposition home or self-care (01) ==
LOC: RAD 08:45
PROVIDERS: Family Provider Family Medicine; PCP Family Medicine; Referring Provider Physical Medicine & Rehabilitation; Visit Provider Physical Medicine & Rehabilitation
DX: M48.02 Spinal stenosis, cervical region (principal); M50.123 Cervical disc disorder at C6-C7 level with radiculopathy
CPT/HCPCS: 62321; 99152; 99153; J1100; J2250; J3010

== ENCOUNTER → 2023-07-15 07:52 | Outpatient (CLI) | payer OTHER, SELFPAY ==
--- NOTE | 2023-07-15 | DI.ECHO.S_ITS ---
[facility] +---------+ : : [address] : : : : [id number] : : : : Phone: [phone] Echocardiogram Report + + :Name: EDUIN BAUER Study Date: 07/15/2023 Height: 69 in : :[facility] ReadingLocation: Weight: 160 lb : : Gender: Female BSA: 1.9 m2 : :: 1970 Age: 52 yrs BP: 153/105 mmHg: :Reason For Study: DIZZINESS AND GIDDINESS : :Ordering Physician: RASHAD, : :KACY Performed By: Cherry Hidalgo : :Referring: KACY SOLORZANO : + + Interpretation Summary The left ventricle is normal in size. The left ventricular ejection fraction is normal. The ejection fraction is estimated to be 55-60%. This is unchanged compared to the previous study. The right ventricle is normal in size and function. No significant valvular pathology seen. The IVC is of normal diameter and collapses greater than 50% with a sniff. This suggests a low right atrial pressure of 3 mm Hg. Overall no significant change from the previous study. Procedure: A two-dimensional transthoracic echocardiogram with color flow and Doppler was performed. The study quality was technically adequate. Comparison is made with the echocardiogram of 10/12/2015. The patient was in sinus rhythm with heart rates between 65-73 bpm during the exam. The patient had a bundle branch block rhythm during the exam. Left Ventricle: The left ventricle is normal in size. Proximal septal thickening is noted. There is no echo evidence for significant left ventricular outflow tract obstruction. The ejection fraction is estimated to be 55-60%. The left ventricular ejection fraction is normal. This is unchanged compared to the previous study. Septal motion is consistent with conduction abnormality. There is apical septal wall hypokinesis. Compared to the prior exam, the left ventricular wall motion has not changed. MV E/A: 1.4 Med Peak E' Avery: 6.6 cm/sec E/E' med: 12.0. Right Ventricle: The right ventricle is normal in size and function. Atria: The left atrial size is normal. There has been no significant change since the previous study. Right atrial size is normal. There is no Doppler evidence for an interatrial shunt. Mitral Valve: The mitral valve is normal in structure and function. There is mild mitral regurgitation. Aortic Valve: The aortic valve is trileaflet. The aortic valve opens well. There is no aortic valve stenosis. No aortic regurgitation is present. Tricuspid Valve: The tricuspid valve is normal in structure and function. There is trace tricuspid regurgitation. The right ventricular systolic pressure is estimated to be at least 23 mmHg based on an estimated right atrial pressure of 3 mm Hg. Pulmonic Valve: The pulmonic valve leaflets are thin and pliable; valve motion is normal. There is trace pulmonic regurgitation. Great Vessels: The aortic root is normal size. The dimensions of the ascending aorta are normal. The IVC is of normal diameter and collapses greater than 50% with a sniff. This suggests a low right atrial pressure of 3 mm Hg. Pericardium/ Pleura There is no pericardial effusion. There is no pleural effusion. MMode/2D Measurements & Calculations LVIDd: 4.9 cm LVOT diam: 2.0 cm LVIDs: 3.0 cm Ao root diam: 3.1 cm FS: 38.2 % asc Aorta Diam: 3.2 cm EPSS: 0.67 cm Ao Arch Diam (Prox Trans): 2.6 cm IVSd: 1.3 cm LVPWd: 0.94 cm LV booker. diameter/BSA (cm/m^2): 2.6 LV sys. diameter/BSA (cm/m^2): 1.6 LA A2 area: 13.9 cm2 RA long axis: 4.8 cm LA A4 area: 14.0 cm2 RA area: 14.3 cm2 LA length (vol): 4.8 cm RA vol: 36.5 ml LA vol: 34.3 ml RA : 19.4 ml/m2 LA vol index: 18.2 ml/m2 IVC diam: 1.7 cm RVD1 (basal): 3.2 cm RVD2 (mid): 2.0 cm TAPSE: 2.2 cm Doppler Measurements & Calculations Ao V2 max: 165.5 cm/sec LVOT Max Avery: 133.5 cm/sec Ao V2 mean: 114.9 cm/sec LV V1 max P.1 mmHg Ao max P.0 mmHg LV V1 VTI: 27.2 cm Ao mean P.1 mmHg LAURA(I,D): 2.6 cm2 Ao V2 VTI: 34.1 cm LAURA(V,D): 2.7 cm2 sev ratio: 0.80 LAURA indexed to BSA (cm^2/m^2): 1.4 MV E max avery: 79.3 cm/sec TR max avery: 224.7 cm/sec MV A max avery: 56.5 cm/sec TR max P.2 mmHg MV E/A: 1.4 PA V2 max: 84.2 cm/sec Med Peak E' Avery: 6.6 cm/sec PA V2 mean: 59.2 cm/sec E/E' med: 12.0 PA mean P.6 mmHg Lat Peak E' Avery: 7.0 cm/sec PA pr(Accel): 44.7 mmHg E/E' lat: 11.4 E/e' average: 11.7 MV dec time: 0.20 sec SV(LVOT): 89.6 ml Reading Physician:05:08 PM
== END ==
PROVIDERS: Family Provider Family Medicine; PCP Obstetrics & Gynecology; Referring Provider Internal Medicine Cardiovascular Disease; Visit Provider Internal Medicine Cardiovascular Disease
DX: I34.0 Nonrheumatic mitral (valve) insufficiency (principal); R42 Dizziness and giddiness
CPT/HCPCS: 93306

== ENCOUNTER 2024-02-24 08:42 | Emergency (ER) | payer OTHER, SELFPAY ==
[2024-02-24] VITALS (9 sets, daily range): BP systolic 142–182; BP diastolic 93–105; PULSE 64–79; RESP 12–28; TEMP 36.5; O2SAT 95–99; BMI 29.2
--- NOTE | 2024-02-24 09:04 | DI.RAD.S_ITS ---
PROCEDURE: XR CHEST 1V INDICATIONS: Shortness of breath TECHNIQUE: One view of the chest was acquired. COMPARISON: None. FINDINGS: Surgical changes and devices: None. Lungs and pleura: Mild atelectasis is present at the left lung base. Lungs are otherwise clear. No pleural effusions or pneumothorax. Mediastinum: Mediastinal contours appear normal. Heart size is normal. Bones and chest wall: No suspicious bony lesions. Overlying soft tissues appear unremarkable. IMPRESSION: Mild left basilar atelectasis. No other acute cardiopulmonary findings. Dictated by: Gabbie Driver M.D. on 02/24/2024 at 9:31 Approved by: Gabbie Driver M.D. on 02/24/2024 at 9:31
[2024-02-24 09:21] LABS: Add Manual Diff / Slide Review NO; Basophils Absolute Auto 0 /uL (0-100); Basophils Percent Auto 0.5 % (0-2); Eosinophils Absolute Auto 100 /uL (0-450); Eosinophils Percent Auto 1.2 % (2-4); Hematocrit 44.7 % (36-46); Hemoglobin 15.6 g/dL (12.0-16.0); Lymphocytes Absolute Auto 1800 /uL (1100-4500); Lymphocytes Percent Auto 27.2 % (25-40); Mean Corpuscular HGB Conc 34.9 % (30-36); Mean Corpuscular Hemoglobin 35.9 PG (26-34); Monocytes Absolute Auto 600 /uL (0-900); Monocytes Percent Auto 8.6 % (3-14); Neutrophils Absolute Auto 4100 /uL (1500-7000); Neutrophils Percent Auto 62.5 % (50-75); Platelet Count 251 X10^3/uL (150-400); Red Blood Cell Count 4.34 X10^6/uL (4.0-5.2); Red Cell Distribution Width 13.8 % (11.6-14.8); White Blood Cell Count 6.5 X10^3/uL (4.5-11.0)
--- NOTE | 2024-02-24 09:21 | ED_ITS ---
HPI - General Adult General Chief complaint: Shortness of Breath/Dyspnea Stated complaint: SoB, Dizzyness Time Seen by Provider: 02/24/24 08:54 Source: patient and family Mode of arrival: Family Vehicle History of Present Illness HPI narrative: 53-year-old woman with a history of alcohol use disorder, hypertension was at work today and developed an episode that she describes as acute onset not associated with anxiety, situational distress, food, drank of any kind that began as a sharp pain under her ribcage that felt very musculoskeletal than became slightly dizzy with tingling all over, noted that her face and cheeks were somewhat tingling and then the tingling spread to her hands her feet and then her lips became fully involved. She felt at this point like her vision was changing she was tremulous and did not feel it was safe to drive. She is upset that she is having these attacks and does not have answers. It sounds like they have been ongoing for a number of years, in 2020 she had a complete cardiac workup including echocardiogram tilt-table test and outpatient rhythm monitoring that showed only a stable left bundle branch block. She notes she has been drinking more recently because of life stressors but describes herself as otherwise doing quite well with no significant stress. She does see a primary care provider and had talked about anxiety previously. It sounds like at 1 point she was on BuSpar and then change to bupropion or the other way around she is not sure which ?B? medication she is currently taking. She has talked to counselors in the past. She notes that even in periods of no alcohol intake she has had similar episodes. She is beginning to have a fear of driving because she is worried she will have an episode while she is driving. She describes chronic diarrhea which is unchanged, no fevers, cough, palpitations, viral type symptoms Related Data Home Medications Medication Instructions Recorded Confirmed bupropion HCl 150 mg 24 hr tablet, 150 mg PO DAILY 05/27/22 08/18/23 extended release bupropion HCl 300 mg 24 hr tablet, 300 mg PO DAILY 05/27/22 08/18/23 extended release estradiol 0.5 mg/0.5 gram (0.1 %) 1 packet topical DAILY 05/27/22 08/18/23 transdermal gel packet (Divigel) semaglutide 0.25 mg or 0.5 mg (2 mg SUBCUT 05/27/22 08/18/23 mg/1.5 mL) subcutaneous pen injector (Ozempic) Previous Rx's Medication Instructions Recorded trazodone 50 mg tablet See Rx Instructions PO BEDTIME PRN 11/22/20 sleep #60 tabs rosuvastatin 5 mg tablet 5 mg PO DAILY #90 tabs 08/24/21 chlorthalidone 25 mg tablet See Rx Instructions .Route 12/11/21 .COMPLEX #90 tabs metoprolol succinate 25 mg See Rx Instructions .Route 12/11/21 tablet,extended release 24 hr .COMPLEX #90 tabs buspirone 5 mg tablet See Rx Instructions .Route 04/01/22 .COMPLEX #60 tabs diazepam 10 mg tablet (Valium) 10 mg PO .COMPLEX PRN 1-2 prior to 05/27/22 MRI and for possible steroid flare #10 tabs gabapentin 300 mg capsule 300 mg PO TID NERVE PAIN #90 caps 06/06/22 Allergies Allergy/AdvReac Type Severity Reaction Status Date / Time No Known Drug Allergies Allergy Verified 02/24/24 09:17 Review of Systems Review of Systems Narrative: Pertinent positive and negative findings as per HPI Patient History Medical History HNP (herniated nucleus pulposus), cervical Segmental and somatic dysfunction of abdomen and other regions Sacral region somatic dysfunction Pelvic somatic dysfunction Lumbar region somatic dysfunction Thoracic region somatic dysfunction Cervical somatic dysfunction Cranial somatic dysfunction Cervical radiculopathy Neck stiffness Acute neck pain Hyperlipidemia Alcohol use disorder Generalized anxiety disorder (~01/2018) Major depressive disorder, single episode, severe without psychotic features Depression Hypertension (10/04/15) Surgical History Status post hysterectomy with oophorectomy Family History Grandmother Myocardial infarct Social History Smoking Status: Never smoker Smoking Status: Never smoker alcohol intake frequency: 3 or more drinks per day Alcohol type: wine Substance Use Type: does not use Exam Initial Vital Signs Initial Vital Signs: Vital Signs Temperature 97.7 F 02/24/24 08:45 Pulse Rate 79 02/24/24 08:45 Respiratory Rate 18 02/24/24 08:45 Blood Pressure 179/105 H 02/24/24 08:45 Pulse Oximetry 99 02/24/24 08:45 Oxygen Delivery Method Room Air 02/24/24 08:45 General: Healthy appearing, in no acute distress. Able to give a complete and coherent history. Well-nourished well-developed HEENT: Moist mucous membranes, normal sclera with reactive pupils, Neck: No JVD, supple Respiratory: Lungs are clear to auscultation, no wheezing no rales no rhonchi. Full and symmetrical air movement Cardiac: Regular rate and rhythm no murmurs no bruits Abdomen: Soft, nontender, good bowel tones, no flank pain Skin: Warm and dry, no rashes Neurologic: Grossly neurologically intact with no obvious asymmetries or abnormalities Extremities: No trauma, well perfused Psych: Cooperative, tearful and afraid but appropriate insight, nonpressured speech Course Orders Ordered: ED Orders 02/24/24 09:04 XR chest 1V Stat EKG-12 Lead Stat Measure peak expiratory flow ONCE RT Consult Eval and Treat NOW 02/24/24 09:05 Complete Blood Count AUTO DIFF Stat Comprehensive Metabolic Panel Stat Lactate (Lactic Acid) Stat NT-proBNP (BNP-Adult 18+) Stat Prothrombin Time INR Stat Troponin I Stat 02/24/24 10:54 CMP [Comprehensive Metabolic Panel] Stat Discontinued Medications Sodium Chloride (Normal Saline 0.9%) 1,000 mls @ 1,000 mls/hr IV BOLUS ONE Stop: 02/24/24 10:57 Last Infusion: 02/24/24 10:52 Dose: Infused Documented By: Infusion: 02/24/24 10:26 Dose: 1,000 mls/hr Documented By: Admin: 02/24/24 09:59 Dose: 1,000 mls/hr Documented By: DAYANARA Potassium Chloride (Potassium Chloride 20 Meq Tab) 40 meq PO NOW ONE Stop: 02/24/24 10:36 Last Admin: 02/24/24 10:52 Dose: 40 meq Documented By: DAYANARA Vital Signs Vital signs: Vital Signs - 8 hr 02/24/24 08:45 02/24/24 09:33 02/24/24 10:00 Temperature 97.7 F Pulse Rate 79 66 Respiratory Rate 18 26 H Blood Pressure 179/105 H 142/93 H Pulse Oximetry 99 97 Oxygen Delivery Method Room Air Room Air 02/24/24 10:00 02/24/24 10:30 02/24/24 10:30 Temperature Pulse Rate 64 72 Respiratory Rate 23 28 H Blood Pressure 182/103 H Pulse Oximetry 95 97 Oxygen Delivery Method Room Air Room Air 02/24/24 11:00 Temperature Pulse Rate 70 Respiratory Rate 26 H Blood Pressure Pulse Oximetry 99 Oxygen Delivery Method Room Air Medical Decision Making Lab Data 02/24/24 09:05 02/24/24 10:54 Labs: Lab Results 02/24/24 02/24/24 Range/Units 09:05 10:54 WBC 6.5 (4.5-11.0) X10^3/uL RBC 4.34 (4.0-5.2) X10^6/uL Hgb 15.6 (12.0-16.0) g/dL Hct 44.7 (36-46) % MCV 103.0 H (80-100) fL MCH 35.9 H (26-34) PG MCHC 34.9 (30-36) % RDW 13.8 (11.6-14.8) % Plt Count 251 (150-400) X10^3/uL Neut % (Auto) 62.5 (50-75) % Lymph % (Auto) 27.2 (25-40) % Latimer % (Auto) 8.6 (3-14) % Eos % (Auto) 1.2 L (2-4) % Baso % (Auto) 0.5 (0-2) % Neut # (Auto) 4100 (9008-7465) /uL Lymph # (Auto) 1800 (3812-6730) /uL Latimer # (Auto) 600 (0-900) /uL Eos # (Auto) 100 (0-450) /uL Baso # (Auto) 0 (0-100) /uL PT 11.0 (9.4-12.5) SECONDS INR 1.0 (0.9-1.3) Sodium 139 138 (137-145) mmol/L Potassium 3.1 L 3.3 L (3.4-5.1) mmol/L Chloride 105 107 (98-107) mmol/L Carbon Dioxide 22 26 (22-32) mmol/L BUN 16 16 (7-17) mg/dL Creatinine 0.75 0.64 (0.52-1.04) mg/dL Estimated GFR > 60 > 60 (>60) mL/min BUN/Creatinine Ratio 21.3 25.0 H (6-22) Glucose 113 H 101 H (70-100) mg/dL Lactate 3.7 H 1.8 (0.7-2.1) mmol/L Calcium 10.0 8.7 (8.4-10.2) mg/dL Total Bilirubin 2.2 H 2.1 H (0.2-1.3) mg/dL AST 37 H 32 (14-36) IU/L ALT 26 22 (<35) IU/L Alkaline Phosphatase 91 90 (38-126) U/L Troponin I < 0.012 (0.01-0.034) ng/mL NT-Pro-B Natriuret Pep 24 (<125) pg/mL Total Protein 8.2 7.0 (6.3-8.2) g/dL Albumin 4.8 4.1 (3.5-5.0) g/dL Globulin 3.4 2.9 (1.7-4.1) g/dL Albumin/Globulin Ratio 1.4 1.4 (1.0-2.8) MDM Narrative Medical decision making narrative: CC: Acute episode with left-sided musculoskeletal pain progressing to tingling all over Complicating co-morbidities: Alcohol use disorder, generalized anxiety disorder, major depression, hypertension, chronic diarrhea Data collected from: patient Medical records reviewed: Cardiology note from January 04 is reviewed. She was evaluated for hypertension in the presence of a left bundle branch block. EKG description from that visit is consistent with EKG today Differential considered: Acute coronary syndrome, pulmonary embolism (with no significant tachycardia or hypoxia and no significant risk factors concern for PE is low), significant electrolyte abnormalities care, symptomatic rhythm change, panic attack Exam documented above, pertinent findings include: On arrival patient is given a non-rebreather mask not attached oxygen and shortly thereafter symptoms improved significantly. Her exam is entirely benign Lab Test results independently reviewed as above. Pertinent findings: CBC is unremarkable, she does have an elevated MCV at 103 Chemistries show potassium slightly low at 3.1. Lactic acid is elevated at 3.7 Bilirubin is elevated at 2.2 with slight elevation of AST Troponin is undetectable Repeat chemistries are essentially unremarkable with bili slightly less. Repeat lactic acid is back to normal 1.8 Independently reviewed EKG: Sinus rhythm at a rate of 76 with a left bundle branch block and PVCs. These have been noted on descriptions of prior EKGs Imaging studies independently reviewed: No acute findings. Radiology interpretation suggests mild left basilar atelectasis Treatments: Fluids and re-evaluation of her lactic acid as well as low potassium. She is given oral potassium. Re-evaluations: Discussion: 53-year-old woman with an episode this morning associated with facial numbness turning to hand numbness fingers tingling legs and toes tingling resolved. Acute onset without significant anxiety or situational difficulty. Initial lactic acid was elevated I suspect that that was from the shaking that she was doing and has resolved with fluids alone. There was no evidence of infectious etiology either viral or bacterial. No sign of acute coronary syndrome, collapsed lung, pneumonia, sepsis, pulmonary embolism. Her potassium is slightly low likely is a consequence of her chronic diarrhea as well as chlorthalidone use. At this time I do not have an acute medical etiology to explain her episode. We did talk about panic attack. The tingling progressive that resolved with breathing into a non-rebreather not attached oxygen does suggest hyperventilation. Patient became quite upset with the suggestion that this might be secondary to stressors as well as alcohol use. I explained all of the things we did not find and suggested that she needed to follow up with her primary care physician to come up with a better diagnosis of the events themselves. Did reassure her that she had full cardiac workup for similar complaints just a couple of years ago and that workup was entirely reassuring. At this point there is no indication for additional imaging or hospitalization the patient may be discharged Discharge Plan Departure Patient Disposition: Home Clinical Impression: Acute dyspnea, Dizziness Activity Restrictions/Additional Instructions: Thank you for coming in today Despite this terrifying event, your workup is very reassuring. I do not see signs of heart attack, collapsed lung, blood clot in your lungs, overwhelming infection, brain tumors or stroke. At this time, discharge home is safe. Sometimes the emergency room with very good for telling you all the things that you do not have an acute life-threatening abnormality. Sometimes it also takes your primary care provider to help you sort out what is actually causing these episodes. I would encourage you to look up panic attacks. I have a very strong suspicion that is what you are experiencing. Often times they do happen completely out of the blue without any associated anxiety provoking events. That is part of what makes them so terrified. Self education is important as well as reassurance that we have done all of the medical workup and this is not an acute heart attack stroke or other life-threatening issue. If you find that you are getting worse or develop any new symptoms, please feel free to return to the emergency department for further evaluation. Prescriptions: No Action metoprolol succinate 25 mg tablet extended release 24 hr See Rx Instructions .ROUTE .COMPLEX Qty: 90 3RF Dose Instruction: TAKE 1 TABLET BY MOUTH EVERY DAY Rx Instructions: TAKE 1 TABLET BY MOUTH EVERY DAY chlorthalidone 25 mg tablet See Rx Instructions .ROUTE .COMPLEX Qty: 90 3RF Dose Instruction: TAKE 1 TABLET BY MOUTH EVERY DAY Rx Instructions: TAKE 1 TABLET BY MOUTH EVERY DAY buspirone 5 mg tablet See Rx Instructions .ROUTE .COMPLEX Qty: 60 0RF Dose Instruction: TAKE 1 TABLET BY MOUTH TWICE DAILY FOR ANXIETY Rx Instructions: TAKE 1 TABLET BY MOUTH TWICE DAILY FOR ANXIETY gabapentin 300 mg capsule 300 mg PO TID Qty: 90 0RF Rx Instructions: START AT NIGHT WITH 1-300MG CAP. THEN INCREASE TO 2-300MG CAPS AT NIGHT. THIS CAN BE SEDATING. ONCE YOUR AT 2 CAPS AT NIGHT CAN TAKE DURING THE DAY. TRY IT OUT IN DAYTIME AND IT CAN SEDATE YOU. INCREASE WITH CAUTION trazodone 50 mg tablet See Rx Instructions PO BEDTIME PRN (Reason: sleep) Qty: 60 2RF Rx Instructions: PO bedtime PRN; rosuvastatin 5 mg tablet 5 mg PO DAILY Qty: 90 1RF Divigel 0.5 mg/0.5 gram (0.1 %) gel in packet 1 packet topical DAILY Ozempic 0.25 mg or 0.5 mg(2 mg/1.5 mL) pen injector SUBCUT bupropion HCl 300 mg tablet extended release 24 hr 300 mg PO DAILY bupropion HCl 150 mg tablet extended release 24 hr 150 mg PO DAILY diazepam [Valium] 10 mg tablet 10 mg PO .COMPLEX MDD 3 tabs PRN (Reason: 1-2 prior to MRI and for possible steroid flare) Qty: 10 0RF Rx Instructions: 10 mg PO PRN; Referrals: Dinah Lee DO [Primary Care Provider] - Stand Alone Forms: Patient Portal/API
[2024-02-24 09:26] LABS: Alanine Aminotransferase 26 IU/L (<35); Albumin 4.8 g/dL (3.5-5.0); Albumin Globulin Ratio 1.4 (1.0-2.8); Alkaline Phosphatase 91 U/L (38-126); Aspartate Aminotransferase 37 IU/L (14-36); BUN Creatinine Ratio 21.3 (6-22); Bilirubin Total 2.2 mg/dL (0.2-1.3); Blood Urea Nitrogen 16 mg/dL (7-17); Carbon Dioxide 22 mmol/L (22-32); Chloride 105 mmol/L (98-107); Estimated Glomerular Filt Rate > 60 mL/min (>60); Globulin 3.4 g/dL (1.7-4.1); Glucose 113 mg/dL (70-100); HEMOLYSIS < 15 (0-50); Potassium 3.1 mmol/L (3.4-5.1); Sodium 139 mmol/L (137-145); Total Protein 8.2 g/dL (6.3-8.2)
[2024-02-24 09:27] LABS: Lactate (Lactic Acid) 3.7 mmol/L (0.7-2.1)
[2024-02-24 09:38] LABS: NT-proBNP (BNP-Adult 18+) 24 pg/mL (<125); Troponin I < 0.012 ng/mL (0.01-0.034)
--- NOTE | 2024-02-24 09:47 | PC.NURSE ---
Pt reports feeling much better than when she first arrived to the ER. This morning pt reports substernal chest pain, numbness and tingling of her extremities, feeling SOB, anxious. Pt takes busperone for anxiety but feels as if it isnt working since she has repeat episodes similar to today, her last episode being in august. Pt denies chest pain, or SOB currently, numbness/tingling in her extremities is resolved now. Still reports her cheeks feel flushed/tingling. Pt removed non-rebreather mask since feeling better. She is still anxious, wondering what could cause these episodes. Pt family at bedside.
[2024-02-24] MEDS: SODIUM CHLORIDE 0.9% 1,000 ML 1000 ML IV (09:59)
[2024-02-24 10:47] LABS: Reflexed Lactate in 2 Hours Y
[2024-02-24] MEDS: POTASSIUM CHLORIDE 20 MEQ TAB 40 MEQ PO (10:52)
[2024-02-24 11:19] LABS: Alanine Aminotransferase 22 IU/L (<35); Albumin 4.1 g/dL (3.5-5.0); Albumin Globulin Ratio 1.4 (1.0-2.8); Alkaline Phosphatase 90 U/L (38-126); Aspartate Aminotransferase 32 IU/L (14-36); Bilirubin Total 2.1 mg/dL (0.2-1.3); Blood Urea Nitrogen 16 mg/dL (7-17); Calcium 8.7 mg/dL (8.4-10.2); Carbon Dioxide 26 mmol/L (22-32); Chloride 107 mmol/L (98-107); Estimated Glomerular Filt Rate > 60 mL/min (>60); Globulin 2.9 g/dL (1.7-4.1); Glucose 101 mg/dL (70-100); HEMOLYSIS < 15 (0-50); Lactate 2HR (Lactic Acid Rflx) 1.8 mmol/L (0.7-2.1); Potassium 3.3 mmol/L (3.4-5.1); Sodium 138 mmol/L (137-145)
== END 2024-02-24 12:57 | disposition home or self-care (01) ==
PROVIDERS: Emergency Provider Emergency Medicine; Family Provider Family Medicine; PCP Obstetrics & Gynecology
DX: R42 Dizziness and giddiness (principal); R06.00 Dyspnea, unspecified; R20.0 Anesthesia of skin; R20.2 Paresthesia of skin
CPT/HCPCS: 36415; 71045; 80053; 83605; 83880; 84484; 85025; 85610; 93005; 99284

== ENCOUNTER → 2024-07-16 13:50 | Outpatient (CLI) | payer OTHER, SELFPAY ==
[2024-07-16 14:51] LABS: Hemoglobin A1C% w Est Avg Glu 4.8 % (4.0-6.0)
[2024-07-16 15:04] LABS: Cholesterol 222 mg/dL (140-199); HDL Cholesterol 77 mg/dL (40-60); LDL Cholesterol Calculated 131 mg/dL (<100); Triglycerides 71 mg/dL (35-150)
[2024-07-16 15:30] LABS: TSH w/ Reflex to FT4 1.43 uIU/mL (0.47-4.68)
[2024-07-16 15:49] LABS: Vitamin B12 877 pg/mL (239-931)
== END ==
LOC: LAB 13:51
PROVIDERS: Family Provider Family Medicine; PCP Nurse Practitioner Family; Referring Provider Nurse Practitioner Family; Visit Provider Nurse Practitioner Family
DX: E78.5 Hyperlipidemia, unspecified (principal); I10 Essential (primary) hypertension; E55.9 Vitamin D deficiency, unspecified; F41.9 Anxiety disorder, unspecified; E66.9 Obesity, unspecified
CPT/HCPCS: 36415; 80061; 82306; 82607; 83036; 84443

== ENCOUNTER → 2025-08-10 07:54 | Outpatient (CLI) | payer OTHER, SELFPAY | LOC: CAR 07:55 | PROVIDERS: PCP Nurse Practitioner Family; Referring Provider Nurse Practitioner Family; Visit Provider Nurse Practitioner Family | DX: R06.02 Shortness of breath (principal); R42 Dizziness and giddiness | CPT/HCPCS: 93242 ==